=== PATIENT | female | born 1985 | race Caucasian/White ===

== ENCOUNTER 2017-03-08 10:57 | Inpatient (IN) | payer BC ==
[2017-03-08 11:30] VITALS: BMI 34.3
[2017-03-08] MEDS ORDERED: Ondansetron HCl/PF 4 MG/2 ML Vial IVP PRN ×3 (11:58→19:06)
[2017-03-08] MEDS ORDERED: Diphenoxylate HCl/Atropine Tablet PO PRN (11:58)
[2017-03-08] MEDS ORDERED: LR / Pitocin 40 units/1000 ml 1,000 ML IV PRN (11:58)
[2017-03-08] MEDS ORDERED: Lidocaine 1% (PF) 30 ML VIAL SC PRN (11:58)
[2017-03-08] MEDS ORDERED: HYDROcodone/Acetaminophen 5/325 mg Tablet PO PRN ×4 (11:58→19:06)
[2017-03-08] MEDS ORDERED: Promethazine HCl 25 MG/ML VIAL IM PRN ×2 (11:58→13:16)
[2017-03-08] MEDS ORDERED: Carboprost 250 MCG/ML AMP IM PRN (11:58)
[2017-03-08] MEDS ORDERED: Lactated Ringer's 1,000 ML IV SCH ×2 (12:00)
[2017-03-08 12:15] LABS: Hematocrit 39.5 % (36.0-47.0); Mean Platelet Volume 8.1 fL (7.4-10.4); Red Blood Cell (RBC) Count 4.55 mill/uL (4.20-5.40); White Blood Cell (WBC) Count 10.9 thou/uL (4.8-10.8)
[2017-03-08] MEDS ORDERED: Fentanyl 4 mcg/Marc 0.1% Cadd 100 ML ONE (12:24)
[2017-03-08] MEDS ORDERED: diphenhydrAMINE 50 MG/ML VIAL IVP PRN (13:16)
[2017-03-08] MEDS ORDERED: Naloxone HCl 0.4 mg/ml Vial IVP PRN ×2 (13:16)
[2017-03-08] MEDS ORDERED: Eucerin (Mineral Oil/Petrolatum,White) 30 gm Jar TOP PRN (13:16)
[2017-03-08] MEDS ORDERED: Acetaminophen 325 MG TAB PO PRN (13:16)
[2017-03-08] MEDS ORDERED: ePHEDrine/0.9% NaCl/PF SYRINGE 50 mg/10 ml SLOW IVP PRN (13:16)
[2017-03-08] MEDS ORDERED: Lactated Ringer's 500 ML IV PRN (13:16)
[2017-03-08] MEDS ORDERED: Fentanyl 4mcg/Marcaine 0.1% Cassette 100 ML EPIDURAL SCH (13:30)
[2017-03-08] MEDS ORDERED: Communication Order-Pharmacy FS SCH (13:30)
--- NOTE | 2017-03-08 16:40 | PDOC.OPDEL ---
OB Operative/Delivery Note Delivery Dr/Surgeon: Cliff Fong Pre-Delivery Diagnosis: active labor Procedure/Post Delivery Dx: spontaneous vaginal delivery Weeks gestation: 39 Anesthesia: epidural - Findings A Sex: male (at 1619) - 1 min: 9 - 5 min: 9 - Additional Findings/Plan Placenta delivered: spontaneous Repaired Obstetrical Laceration: 2nd degree Estimated blood loss: 500 Post delivery plan: routine recovery
[2017-03-08] MEDS ORDERED: diphenhydrAMINE 25 MG CAP PO PRN (19:06)
[2017-03-08] MEDS ORDERED: Adacel (T-DAP) 0.5 ML VIAL IM ONE (19:06)
[2017-03-08] MEDS ORDERED: Benzocaine/Menthol 20-0.5% 60 ML CAN TOP PRN (19:06)
[2017-03-08] MEDS ORDERED: LR / Pitocin 40 units/1000 ml 1,000 ML IV SCH (19:06)
[2017-03-08] MEDS ORDERED: Preparation H Ointment 28 GM TUBE PR PRN (19:06)
[2017-03-08] MEDS ORDERED: Zolpidem Tartrate 5 MG TAB PO PRN (19:06)
[2017-03-08] MEDS ORDERED: Lanolin Ointment 7 GM TUBE TOP PRN (19:06)
[2017-03-08] MEDS ORDERED: Bisacodyl 10 MG SUPP PR PRN (19:06)
[2017-03-08] MEDS ORDERED: Milk Of Magnesia 30 ML UDCUP PO PRN (19:06)
[2017-03-08] MEDS: Docusate (Surfak) 240 MG CAP PO SCH (21:26)
[2017-03-08] MEDS: Ibuprofen 800 MG TAB PO SCH (21:26)
[2017-03-08] MEDS: Ferrous Sulfate 325 MG TAB PO SCH (22:41)
[2017-03-09] MEDS: Ibuprofen 800 MG TAB PO SCH ×3 (06:08→21:55)
[2017-03-09] MEDS: Docusate (Surfak) 240 MG CAP PO SCH ×2 (08:03→21:56)
[2017-03-09] MEDS: Prenatal Vitamin 1 TAB PO SCH (08:03)
[2017-03-09] MEDS: Ferrous Sulfate 325 MG TAB PO SCH ×2 (08:04→17:27)
[2017-03-09] MEDS ORDERED: Levothyroxine Sodium 175 MCG TAB PO SCH (08:30)
[2017-03-10] MEDS ORDERED: Levothyroxine Sodium 175 MCG TAB PO SCH (06:00)
[2017-03-10] MEDS: Ibuprofen 800 MG TAB PO SCH ×2 (06:22→14:00)
[2017-03-10 08:17] VITALS: BP 110/72; TEMP 98.6
[2017-03-10] MEDS: Ferrous Sulfate 325 MG TAB PO SCH (08:29)
[2017-03-10] MEDS: Prenatal Vitamin 1 TAB PO SCH (08:29)
[2017-03-10] MEDS: Docusate (Surfak) 240 MG CAP PO SCH (08:29)
--- NOTE | 2017-03-10 08:38 | DIS ---
DATE OF ADMISSION: 03/08/2017 DATE OF DISCHARGE: 03/10/2017 ADMISSION DIAGNOSIS: Active labor. PROCEDURES PERFORMED: Spontaneous vaginal delivery, repair of second degree midline laceration. HOSPITAL COURSE: The patient is doing well. She has normal lochia, is , minimal pain. VITAL SIGNS: Vitals are within normal limits. The patient is afebrile. GENERAL: Nontoxic appearing female in no acute distress. ABDOMEN: Soft, nontender, nondistended, no rebound, no guarding. GENITOURINARY: Fundus is firm at the umbilicus. ASSESSMENT AND PLAN: day #2 status post spontaneous vaginal delivery, doing well. The pa tient is stable for discharge. She will take Motrin over the counter.
== END 2017-03-10 15:15 | disposition home or self-care (01) | DRG 775 ==
LOC: L&D/OP 10:57 → L&D 11:44 → 3SW 19:04
PROVIDERS: ADMIT Student in an Organized Health Care Education/Training Program; ATTEND Student in an Organized Health Care Education/Training Program
PROC: 10E0XZZ Delivery of Products of Conception, External Approach (ICD-10-PCS; principal; 2017-03-08)
PROC: 10907ZC Drainage of Amniotic Fluid, Therapeutic from Products of Conception, Via Natural or Artificial Opening (ICD-10-PCS; 2017-03-08)
PROC: 0KQM0ZZ Repair Perineum Muscle, Open Approach (ICD-10-PCS; 2017-03-08)
DX: O70.1 Second degree perineal laceration during delivery (principal); Z37.0 Single live birth; Z3A.39 39 weeks gestation of pregnancy
CPT/HCPCS: 85027; 86780; 87340; J2001

== ENCOUNTER 2018-09-27 04:02 | Inpatient (IN) | payer BC ==
[2018-09-27 04:42] VITALS: BMI 35.2
[2018-09-27] MEDS ORDERED: Meperidine HCl/PF 25 MG/ML VIAL IM/IV PRN (04:48)
[2018-09-27] MEDS ORDERED: Butorphanol Tartrate 1 MG/ML VIAL SLOW IVP PRN (04:48)
[2018-09-27] MEDS ORDERED: Lactated Ringer's 1,000 ML IV SCH (04:48)
[2018-09-27] MEDS ORDERED: Promethazine HCl 25 MG/ML VIAL IM PRN ×2 (04:48→05:44)
[2018-09-27] MEDS ORDERED: Ondansetron PF 4 MG/2 ML Vial IVP PRN ×3 (04:48→08:52)
[2018-09-27 04:51] LABS: Hemoglobin 13.1 g/dL (12.0-16.0); Mean Corpuscular HGB CONC 31.6 g/dL (32.0-36.0); Mean Corpuscular Hemoglobin 26.5 pg (27.0-31.0); Mean Platelet Volume 8.9 fL (7.4-10.4); Platelet Count 210 thou/uL (130-400); RBC Distribution Width 17.2 % (11.5-14.5); Red Blood Cell (RBC) Count 4.95 mill/uL (4.20-5.40); White Blood Cell (WBC) Count 9.2 thou/uL (4.8-10.8)
[2018-09-27] MEDS ORDERED: Fentanyl 4 mcg/Bup 0.1% Cadd 100 ML ONE (04:55)
[2018-09-27] MEDS ORDERED: NS / Oxytocin 40 units/1000ml 1,000 ML IV SCH ×2 (05:00→08:52)
[2018-09-27] MEDS ORDERED: NS w/ Oxytocin 10 units 500 ML IV SCH ×2 (05:00)
[2018-09-27] MEDS ORDERED: Lidocaine 1% (PF) 30 ML VIAL SC PRN (05:00)
[2018-09-27] MEDS ORDERED: Ibuprofen 800 MG TAB PO PRN (05:00)
[2018-09-27] MEDS ORDERED: Misoprostol 200 MCG TAB RC PRN (05:00)
[2018-09-27] MEDS ORDERED: Fentanyl 100 MCG/2 ML VIAL ONE (05:06)
[2018-09-27 05:33] LABS: Syphilis Antibody Nonreactive (Nonreactive); Syphilis Antibody Index 0.03 S/CO (<1.00 Non-Reactive)
[2018-09-27] MEDS ORDERED: ePHEDrine/0.9% NaCl/PF SYRINGE 50 mg/10 ml SLOW IVP PRN (05:44)
[2018-09-27] MEDS ORDERED: Acetaminophen 325 MG TAB PO PRN (05:44)
[2018-09-27] MEDS ORDERED: Lactated Ringer's 500 ML IV PRN (05:44)
[2018-09-27] MEDS ORDERED: Naloxone HCl 0.4 mg/ml Vial IVP PRN ×2 (05:44)
[2018-09-27] MEDS ORDERED: diphenhydrAMINE 50 MG/ML VIAL IVP PRN (05:44)
[2018-09-27] MEDS ORDERED: Fentanyl 4 mcg/Bupivacaine 0.1% Cassette 100 ML EPIDURAL SCH (05:45)
[2018-09-27] MEDS ORDERED: Communication Order-Pharmacy FS SCH (05:45)
[2018-09-27 05:47] LABS: HBSAg Index 0.31 S/CO (0-0.99); Hep B Surf Ag Non-Reactive S/CO (NonReactive)
--- NOTE | 2018-09-27 08:19 | PDOC.LDHP ---
Labor and Delivery H&P Chief complaint: contractions HPI: 33yo at 40w0d c/o painful contractions. SROM'ed at 10cm. Current gestational age (weeks): 40 Due date: 09/27/18 Dating criteria: last menstrual period Grav: 2 Para: 1 Current complications: none Abnormal US findings: No Past Medical History: hypothyroid Current medications: pre-shasha vitamins, other (levothyroxoine 200mcg) Previous surgical history: other (wisdom teeth, thyroidectomy) Allergies/Adverse Reactions: Allergies Allergy/AdvReac Type Severity Reaction Status Date / Time No Known Allergies Allergy Verified 09/27/18 04:43 Social history: none - Physical Exam Vital signs reviewed and normal: yes General: NAD Heart: RRR Lungs: CTAB Abdomen: gravid Extremeties: no edema FHT: category 1 [place] contractions every: 3-5min - Vaginal Exam cm dilated: 10 Effacement: 100% Station: 3+ - OB Labs Blood type: O RH: positive Antibody Screen: negative HIV: negative RPR: negative HEPSAg: negative 1 hour GCT: negative GBS: negative Urine drug screen: negative Rubella: immune - Assessment L&D Assessment: term patient in labor - Plan Plan: admit to L&D, labor augmentation if indicated, informed consent obtained, anesthesia consult for pain management
--- NOTE | 2018-09-27 08:21 | PDOC.OPDEL ---
OB Operative/Delivery Note Delivery Dr/Surgeon: Ajit Assist: n/a Pre-Delivery Diagnosis: active labor Procedure/Post Delivery Dx: spontaneous vaginal delivery Weeks gestation: 40 Anesthesia: epidural - Findings A Sex: female - 1 min: 9 - 5 min: 9 - Additional Findings/Plan Placenta delivered: spontaneous Repaired Obstetrical Laceration: 2nd degree (repaired with 2-0 vicryl) Estimated blood loss: 300 Post delivery plan: routine recovery
[2018-09-27] MEDS ORDERED: HYDROcodone/Acetaminophen 5/325 mg Tablet PO PRN ×2 (08:52)
[2018-09-27] MEDS ORDERED: diphenhydrAMINE 25 MG CAP PO PRN (08:52)
[2018-09-27] MEDS ORDERED: Adacel (T-DAP) 0.5 ML SYRINGE IM ONE (08:52)
[2018-09-27] MEDS ORDERED: Lanolin Ointment 7 GM TUBE TOP PRN (08:52)
[2018-09-27] MEDS ORDERED: Zolpidem Tartrate 5 MG TAB PO PRN (08:52)
[2018-09-27] MEDS ORDERED: Bisacodyl 10 MG SUPP PR PRN (08:52)
[2018-09-27] MEDS ORDERED: Milk Of Magnesia 30 ML UDCUP PO PRN (08:52)
[2018-09-27] MEDS ORDERED: Benzocaine-Menthol 82.5 ML CAN TOP PRN (08:52)
[2018-09-27] MEDS ORDERED: Preparation H Ointment 28 GM TUBE PR PRN (08:52)
[2018-09-27] MEDS: Docusate Calcium (SURFAK) 240 MG CAP PO SCH ×2 (11:18→21:48)
[2018-09-27] MEDS: Prenatal Vitamin 1 TAB PO SCH (11:18)
[2018-09-27] MEDS: Ibuprofen 800 MG TAB PO SCH ×2 (13:13→21:48)
[2018-09-27] MEDS ORDERED: Bupivacaine/Epinephrine 0.25% 30 ML VIAL ONE (15:00)
[2018-09-27] MEDS: Ferrous Sulfate 325 MG TAB PO SCH (16:39)
[2018-09-28 05:11] VITALS: TEMP 98.5
[2018-09-28] MEDS: Ibuprofen 800 MG TAB PO SCH (05:27)
[2018-09-28 07:57] VITALS: BP 94/51
--- NOTE | 2018-09-28 08:57 | PDOC.PP ---
Post Progress Note Post Day #: 1 PO intake tolerated: yes Flatus: yes Ambulation: yes Vital Signs (12 hours) Temp Pulse Resp BP Pulse Ox 09/28/18 07:56 98.5 F 73 20 94/51 L 100 09/28/18 04:00 98.5 F 86 16 108/67 99 09/28/18 00:00 98.3 F 76 18 102/60 Weight Weight 232 lb - Physical Examination General: NAD Respiratory: non-labored breathing Abdominal: no distention, appropriately TTP Fundus firm & at: umb Skin: no rash Neurological: no gross focal deficits Psychiatric: normal affect Result Diagrams: 09/27/18 04:39 Additional Labs: Post Labs Blood Type O POSITIVE 09/27/18 04:39 Hep Bs Antigen Non-Reactive S/CO (NonReactive) 09/27/18 04:39 - Assessment/Plan PPD1 s/p TSVD VSSAF Doing well lochia appropriate Rh pos RImm DC home FU 6 wk
[2018-09-28] MEDS: Ferrous Sulfate 325 MG TAB PO SCH (09:11)
[2018-09-28] MEDS: Prenatal Vitamin 1 TAB PO SCH (09:11)
[2018-09-28] MEDS: Docusate Calcium (SURFAK) 240 MG CAP PO SCH (09:11)
== END 2018-09-28 14:12 | disposition home or self-care (01) | DRG 807 ==
LOC: L&D/OP 04:02 → L&D 06:41 → 3SW 09:35
PROVIDERS: ADMIT Student in an Organized Health Care Education/Training Program; ATTEND Student in an Organized Health Care Education/Training Program
PROC: 10E0XZZ Delivery of Products of Conception, External Approach (ICD-10-PCS; principal; 2018-09-27)
PROC: 0KQM0ZZ Repair Perineum Muscle, Open Approach (ICD-10-PCS; 2018-09-27)
DX: O99.284 Endocrine, nutritional and metabolic diseases complicating childbirth (principal); Z37.0 Single live birth; O70.1 Second degree perineal laceration during delivery; Z3A.40 40 weeks gestation of pregnancy; E03.9 Hypothyroidism, unspecified
CPT/HCPCS: 36415; 51702; 85027; 86780; 86850; 86900; 86901; 87340; 99285; J3010